=== PATIENT | male | born 1955 | race Caucasian/White ===

== ENCOUNTER 2017-04-16 12:57 | Emergency (ER) | payer OTHER, BC ==
[~2017-04-16] VITALS: Ht 172.7 cm; Wt 96.8 kg
[~2017-04-16 12:57] MED LIST: BENICAR5 MG OR; VYTORIN1 TA1 OR
[2017-04-16] MEDS ORDERED: LISINOPRIL20 M1 PO (13:38)
[2017-04-16] MEDS ORDERED: SIMVASTATIN80 MG PO (13:39)
[2017-04-16 14:36] VITALS: BP 152/84
== END 2017-04-16 14:35 | disposition home or self-care (01) | DRG 556 ==
LOC: ED 12:57
DX: M79.1 Myalgia (principal); M54.5 Low back pain; X50.0XXA Overexertion from strenuous movement or load, initial encounter; Y93.F2 Activity, caregiving, lifting; Y92.238 Other place in hospital as the place of occurrence of the external cause